=== PATIENT | female | born 1975 | race Caucasian/White ===

== ENCOUNTER 2019-05-01 06:25 | Day surgery (SDC) | payer OTHER ==
[~2019-05-01] VITALS: Ht 175.3 cm; Wt 20.0 kg
[~2019-05-01 06:25] MED LIST: TAPAZOLE5 M1 PO
[2019-05-02] MEDS ORDERED: PERCOCET 5-3251 EACH PO (07:35)
== END 2019-05-02 08:00 | disposition home or self-care (01) ==
LOC: CIR.AMB 06:25 → O/R 09:16 → EDSEX 09:16 → CIR.AMB 09:16 → SURG 09:16 → SURH 10:07 → EDSTATUS 10:08 → O/R 10:09 → SURG 10:09 → CIR.AMB 10:14 → O/R 05-02 08:41 → SURG 05-02 08:41
DX: E05.20 Thyrotoxicosis with toxic multinodular goiter without thyrotoxic crisis or storm (principal); E04.2 Nontoxic multinodular goiter; E03.8 Other specified hypothyroidism; E66.01 Morbid (severe) obesity due to excess calories; D34 Benign neoplasm of thyroid gland